=== PATIENT | male | born 1960 | race Caucasian/White ===

== ENCOUNTER 2020-03-20 04:57 | Emergency (ER) | payer SELFPAY ==
[2020-03-20] MEDS ORDERED: Norepinephrine 4 MG/4 ML SDV ONE ×2 (05:15→05:54)
[2020-03-20] MEDS ORDERED: EPINEPHrine 1:10,000 1 MG/10 ML Syringe ONE ×2 (05:15)
[2020-03-20] MEDS ORDERED: Atropine 0.1 MG/ML 10 ML Syringe ONE ×2 (05:15)
[2020-03-20] MEDS ORDERED: Lactated Ringers 1,000 ML IV ONE (05:18)
--- NOTE | 2020-03-20 05:21 | EDM.PDOC ---
ED HPI GENERAL MEDICAL PROBLEM - General Stated Complaint: [facility] Time Seen by Provider: 03/20/20 04:57 Source of Information: Reports: EMS - History of Present Illness INITIAL COMMENTS - FREE TEXT/NARRATIVE: Mr. Troy is a 59-year-old gentleman who, according to his , has no chronic medical problems, no past surgeries, on no medications, who had a witnessed arrest with bystander CPR. When the police arrived, they placed an AED, and the patient was shocked once. When EMS arrived, they found him to be in ventricular fibrillation. The patient was given a total of 4 mg of epinephrine and shocked 2 times en route to the ED. He regained spontaneous circulation twice, however, at the time he arrived to the ED, he was in PEA. EMS attempted intubation without success, therefore a Derick airway was placed. Upon arrival to the ED, the patient was unconscious with no spontaneous respirations. No palpable pulse, however, he appeared to have a sinus rhythm on the monitor, therefore chest compressions were started, eventually taken over with a Cachorro. Shortly after arrival to the ED, I removed the Derick airway and immediately intubated the patient with an 8.0 ETT using a MAC 3 blade to 25 cm at the incisors. Fog noted in the tube on exhalation. Positive CO2 colorimetric change. Breath sounds heard in both axilla. His abdomen initially appeared to be distended. An OG tube was placed, and his abdominal distention appeared to improve. An ECG at 05:12 demonstrates a sinus tachycardia at 106 bpm. No atrial enlargement. No AV block. I do not see any ST elevations or depressions, however, the computer is reading an acute RCA infarct with probable RV involvement, and the suggestion of recording right precordial leads. There is normal R wave progression. No LAD or RAD. No LVH or RVH. There is a nonspecific intraventricular conduction delay. The QTc is within normal limits at 360 ms. A portable chest x-ray appears to demonstrate cardiomegaly with likely dextrocardia. No pulmonary vascular congestion. No pleural effusions. No focal infiltrate. No pneumothorax. The tip of the ET tube is approximately 2 cm above the pa. The OG tube is in the stomach via the esophagus. Formal read per the Radiologist pending. Based on the possibility of dextrocardia, I asked for a repeat ECG which was performed at 05:19. It demonstrates a sinus tachycardia at 102 bpm. No atrial enlargement. No AV block. Again, no acute ST elevations or depressions seen, however the computer reads an ST elevation, consider inferior injury. Poor R wave progression. No LAD or RAD. No LVH or RVH. There is a nonspecific intraventricular conduction light. The QTc is prolonged at 481 ms. - Related Data Allergies Allergy/AdvReac Type Severity Reaction Status Date / Time codeine Allergy Cannot Verified 03/20/20 06:24 Remember Home Meds: Home Meds . [No Known Home Meds] 03/20/20 [History] Past Medical History Endocrine/Metabolic History: Reports: Obesity/BMI 30+ ED ROS GENERAL - Review of Systems Review Of Systems: Unable To Obtain Reason Not Obtained: Patient unconscious ED EXAM, CPR - Physical Exam Exam: See Below General Appearance: WD/WN Ears: Normal External Exam Nose: Normal Inspection Throat/Mouth: Normal Inspection, Normal Lips, Normal Teeth, Normal Gums Head: Atraumatic, Normocephalic Neck: N, S, NON, FUL Extremities: Normal Inspection, Normal Range of Motion, Non-Tender, No Pedal Edema, Normal Capillary Refill Neurological: A, OR, CN, NC, NMLG, NMLR, NMSD ED CPR PROCEDURES - Endotracheal Intubation Time of Intubation: 05:01 ET Intubation Indication: Cardiac Arrest Preparation: Suction, Balloon Tested, BVM Set Up, Difficult Airway Equip Airway Assessment: Obese, Large Tongue Pre-Oxygenation: 100% FiO2 (via Derick airway) Placement: Orotracheal, Cuffed, Uncomplicated Placement Cords Visualized: Yes, Grade 3 ETT Size In mm: 8.0 Number of Attempts: 1 Confirmed By: CO2 Indicator, Bilateral Breath Sounds, Chest Xray Tube Secured By: By RT Course - Orders/Labs/Meds Orders: Active Orders 24 hr Category Date Time Status EKG Documentation Completion [RC] STAT Care 03/20/20 05:23 Ordered Chest 1V Frontal [CR] Stat Exams 03/20/20 05:23 Ordered D-DIMER QUANTITATIVE [COAG] Stat Lab 03/20/20 05:23 Ordered INR,PT,PROTHROMBIN TIME [COAG] Stat Lab 03/20/20 05:23 Ordered PTT,PARTIAL THROMBOPLSTIN TIME [COAG] Stat Lab 03/20/20 05:23 Ordered Labs: Laboratory Tests 01/25/21 01/25/21 01/25/21 Range/Units 05:24 05:28 05:28 WBC 25.04 H (4.23-9.07) K/mm3 RBC 4.61 L (4.63-6.08) M/mm3 Hgb 14.1 (13.7-17.5) gm/dl Hct 42.7 (40.1-51.0) % MCV 92.6 H (79.0-92.2) fl MCH 30.6 (25.7-32.2) pg MCHC 33.0 (32.2-35.5) g/dl RDW Std Deviation 44.0 H (35.1-43.9) fL Plt Count 164 (163-337) K/mm3 MPV 10.7 (9.4-12.3) fl Neutrophils % (Manual) 45 (40-60) % Band Neutrophils % 0 (0-10) % Lymphocytes % (Manual) 47 H (20-40) % Atypical Lymphs % 0 % Monocytes % (Manual) 8 (2-10) % Eosinophils % (Manual) 0 L (0.8-7.0) % Basophils % (Manual) 0 L (0.2-1.2) Nucleated RBCs 1.0 % Platelet Estimate Adequate RBC Morph Comment Normal Sodium 142 (136-145) mEq/L Potassium 4.1 (3.5-5.1) mEq/L Chloride 105 (98-107) mEq/L Carbon Dioxide 15 L (21-32) mEq/L Anion Gap 26.1 H (5-15) BUN 21 H (7-18) mg/dL Creatinine 1.8 H (0.7-1.3) mg/dL Est Cr Clr Drug Dosing TNP Estimated GFR (MDRD) 39 (>60) mL/min BUN/Creatinine Ratio 11.7 L (14-18) Glucose 351 H (74-106) mg/dL Calcium 8.2 L (8.5-10.1) mg/dL Total Bilirubin 0.2 (0.2-1.0) mg/dL AST 73 H (15-37) U/L ALT 109 H (16-63) U/L Alkaline Phosphatase 112 (46-116) U/L Troponin I 0.107 H* (0.00-0.056) ng/mL NT-Pro-B Natriuret Pep (0-125) pg/mL Total Protein 5.4 L (6.4-8.2) g/dl Albumin 2.6 L (3.4-5.0) g/dl Globulin 2.8 gm/dL Albumin/Globulin Ratio 0.9 L (1-2) SARS-CoV-2 RNA (KAREN) Negative (NEGATIVE) 03/20/20 Range/Units 05:28 WBC (4.23-9.07) K/mm3 RBC (4.63-6.08) M/mm3 Hgb (13.7-17.5) gm/dl Hct (40.1-51.0) % MCV (79.0-92.2) fl MCH (25.7-32.2) pg MCHC (32.2-35.5) g/dl RDW Std Deviation (35.1-43.9) fL Plt Count (163-337) K/mm3 MPV (9.4-12.3) fl Neutrophils % (Manual) (40-60) % Band Neutrophils % (0-10) % Lymphocytes % (Manual) (20-40) % Atypical Lymphs % % Monocytes % (Manual) (2-10) % Eosinophils % (Manual) (0.8-7.0) % Basophils % (Manual) (0.2-1.2) Nucleated RBCs % Platelet Estimate RBC Morph Comment Sodium (136-145) mEq/L Potassium (3.5-5.1) mEq/L Chloride (98-107) mEq/L Carbon Dioxide (21-32) mEq/L Anion Gap (5-15) BUN (7-18) mg/dL Creatinine (0.7-1.3) mg/dL Est Cr Clr Drug Dosing Estimated GFR (MDRD) (>60) mL/min BUN/Creatinine Ratio (14-18) Glucose (74-106) mg/dL Calcium (8.5-10.1) mg/dL Total Bilirubin (0.2-1.0) mg/dL AST (15-37) U/L ALT (16-63) U/L Alkaline Phosphatase (46-116) U/L Troponin I (0.00-0.056) ng/mL NT-Pro-B Natriuret Pep 44 (0-125) pg/mL Total Protein (6.4-8.2) g/dl Albumin (3.4-5.0) g/dl Globulin gm/dL Albumin/Globulin Ratio (1-2) SARS-CoV-2 RNA (KAREN) (NEGATIVE) Meds: Medications Discontinued Medications Generic Name Dose Route Start Last Admin Trade Name Lei PRN Reason Stop Dose Admin Albuterol Confirm 03/20/20 06:04 Proventil Neb Soln Administered 03/20/20 06:05 Dose 2.5 mg .ROUTE .STK-MED ONE Sodium Chloride Confirm 03/20/20 05:55 Normal Saline Administered 03/20/20 05:56 Dose 250 mls @ as directed .ROUTE .STK-MED ONE Norepinephrine Bitartrate Confirm 03/20/20 05:54 Levophed Administered 03/20/20 05:55 Dose 4 mg .ROUTE .STK-MED ONE - Re-Assessments/Exams Free Text/Narrative Re-Assessment/Exam: 03/20/20 05:20 We are told that, due to weather, the helicopter is not flying, and that there is no fixed wing in [facility]. The fastest method to [place] appears to be by [facility]. 03/20/20 06:39 At this time, the patient has received a total of 5 mg of epinephrine. He did not require defibrillation or cardioversion here in the ED. He has been given an amiodarone bolus followed by an amiodarone drip. Due to bradycardia, dopamine drip was started at 20 mcg/kg/min and eventually increased to 20 mcg/kg/min, however, the emergency session at [facility] recommended that I switch the dopamine to Levophed, which was initially started at 10 mcg/min, and eventually increased to 30 mcg/min, which she is still on. Additionally, the patient is receiving LR at 150 mL/h. Case discussed with Brittany at [facility] at 05:20. No beds available. Case then discussed with Quentin at [facility] at 05:25. Case then discussed with Dr. Calero, assistant winemaker on-call at [facility]. He recommended that the patient be transferred to the ED, and that he not be given a thrombolytic. Both ECG images were pushed to him. I was called away due to the patient experiencing bradycardia. I spoke to Quentin again at 05:42. Case then discussed with Dr. Kem Hobson, Emergency Physician at [facility], at 05 46. He accepted the patient for transfer to their ED. 03/20/20 06:46 The patient has just departed the ED. 03/20/20 06:50 Critical care time spent on this patient: 110 minutes Departure - Departure Time of Disposition: 06:47 Disposition: DC/Tfer to Acute Hospital 02 Condition: Critical Clinical Impression: Acute [place] - Discharge Information *PRESCRIPTION DRUG MONITORING PROGRAM REVIEWED*: Not Applicable *COPY OF PRESCRIPTION DRUG MONITORING REPORT IN PATIENT TED: Not Applicable Referrals: PCP,Unknown [Ordering Only Provider] - - My Orders Last 24 Hours: My Active Orders 03/20/20 05:23 EKG Documentation Completion [RC] STAT Chest 1V Frontal [CR] Stat D-DIMER QUANTITATIVE [COAG] Stat INR,PT,PROTHROMBIN TIME [COAG] Stat PTT,PARTIAL THROMBOPLSTIN TIME [COAG] Stat - Assessment/Plan Last 24 Hours: My Active Orders 03/20/20 05:23 EKG Documentation Completion [RC] STAT Chest 1V Frontal [CR] Stat D-DIMER QUANTITATIVE [COAG] Stat INR,PT,PROTHROMBIN TIME [COAG] Stat PTT,PARTIAL THROMBOPLSTIN TIME [COAG] Stat
[2020-03-20] MEDS ORDERED: DOPamine/Dextrose 5%-Water 400 MG/250 ML BAG IV ONE (05:40)
[2020-03-20] MEDS ORDERED: Sodium Chloride 0.9% 250 ML ONE (05:55)
[2020-03-20] MEDS ORDERED: Albuterol 0.083% 2.5 MG/3 ML Neb Soln ONE (06:04)
--- NOTE | 2020-03-20 08:07 | CR ---
Chest: Portable supine view of the chest was obtained. Comparison: No previous study. Heart size appears within normal limits for supine technique. Slight tortuosity of the thoracic aorta is noted. Density is noted within the right cardiophrenic angle most likely due to prominent epicardial fat pad. Lungs show questionable slight pulmonary vascular congestion. Endotracheal tube is seen lying midway between the clavicle and pa in satisfactory position. Nasogastric tube courses through the gastroesophageal junction with tip lying within the stomach. Impression: 1. Endotracheal tube and nasogastric tube as noted above. 2. Findings suspicious for minimal pulmonary vascular congestion. 3. Other incidental findings. Diagnostic code #3
== END 2020-03-20 06:45 ==
LOC: JD.ED 04:57
DX: I21.9 Acute myocardial infarction, unspecified (principal); E66.9 Obesity, unspecified; Z88.5 Allergy status to narcotic agent; Z20.822 Contact with and (suspected) exposure to COVID-19
CPT/HCPCS: 31500; 36415; 43752; 51702; 71045; 80053; 83880; 84484; 85007; 85027; 85379; 85610; 85730; 87635; 92950; 93005; 96365; 96368; 96375; 99285; J0171; J0282; J0461; J1265; J7120; 99291; 99292; U0002